=== PATIENT | male | born 1955 | race Caucasian/White ===

== ENCOUNTER 2017-07-23 11:55 | Inpatient (IN) | payer BC, OTHER ==
[2017-07-23 14:49] LABS: PLATELET COUNT 176 10^3/uL (150-400)
[2017-07-23] MEDS ORDERED: ACETAMINOPHEN 500 MG TAB PO ONE (15:11)
[2017-07-23] MEDS ORDERED: NS 1,000 ML IV ONE (15:12)
[2017-07-23] MEDS ORDERED: cefTRIAXone 1 GM in STERILE WATER INJ 10 ML IV ONE (15:14)
[2017-07-23] MEDS ORDERED: NS 3,000 ML IV ONE (15:20)
--- NOTE | 2017-07-23 15:25 | EDPHY ---
H & P Smoking Status: Never smoked Time Seen by Provider: 07/23/17 13:31 HPI/ROS: CHIEF COMPLAINT: Fever, myalgias HISTORY OF PRESENT ILLNESS: 61-year-old male presents to the emergency department by private vehicle with fever and myalgias that began this morning. The patient states that he woke up this morning with "shaking chills". He states that he has diffuse myalgias. He initially went to urgent care however they sent him to the emergency department for evaluation. He denies rhinorrhea , nasal congestion, cough, chest or difficulty breathing. Denies abdominal pain. He had some mild lower back discomfort which she thought was associated with riding his bike. He has no radicular symptoms in his lower legs. He does reports that he has some urinary frequency that developed this morning as well. He denies dysuria or hematuria. He has never had problems with bladder kidney infections in the past. No recent surgery or procedures. No known ill contacts or recent travel. REVIEW OF SYSTEMS: Constitutional: Fever, chills Eyes: No double or blurry vision. ENT: No sore throat. Respiratory: No cough, no shortness of breath. Cardiac: No chest pain. Gastrointestinal: No abdominal pain, vomiting or diarrhea. Genitourinary: Urinary frequency, no dysuria. Musculoskeletal: As above. No neck pain. Skin: No rashes. Neurological: No headache. (Ozzy,Sara M) Past Medical/Surgical History: Negative (Ozzy,Sara M) Social History: and lives in [place]. Originally from [place] (Ozzy,Sara M) Physical Exam: General Appearance: Alert, no distress. Initial temperature 38.8 degrees. Eyes: Pupils equal and round. Extraocular motions are all intact. ENT: Mouth: Mucous membranes moist. Respiratory: No wheezing, rhonchi, or rales, lungs are clear to auscultation. Cardiovascular: Regular rate and rhythm. Gastrointestinal: Abdomen is soft and nontender, no masses, no rebound or guarding, bowel sounds normal. No CVA tenderness bilaterally. Neurological: Alert and oriented x 3, cranial nerves II through XII grossly intact Skin: Warm and dry, no rashes. Musculoskeletal: Nontender to palpate along the cervical, thoracic or lumbar spine. Neck is supple. Extremities: Full range of motion and no peripheral edema. Psychiatric: Patient is oriented X 3, there is no agitation. (Sara Preciado) Constitutional: Initial Vital Signs Temperature (C) 37.9 C 07/23/17 12:02 Heart Rate 82 07/23/17 12:02 Respiratory Rate 18 07/23/17 12:02 Blood Pressure 142/85 H 07/23/17 12:02 O2 Sat (%) 92 07/23/17 12:02 O2 Delivery Mode Room Air Allergies/Adverse Reactions: No Known Allergies Allergy (Unverified 07/23/17 12:05) Home Medications: Medication Instructions Recorded Herbals/Supplements -Info Only 1 ea PO DAILY 07/23/17 Medical Decision Making ED Course/Re-evaluation: 61-year-old male presents to the emergency department with fever, shaking chills and myalgias. Influenza was negative. Urinalysis reveals 50-200 red blood cells and 50-200 white blood cells with bacteria present. Urine cultures pending. Given the patient's high fever and urinalysis, laboratory studies were drawn the patient has elevated white count of nearly 22,000 a large left shift. Chemistries are unremarkable. Lactate is pending. Blood cultures and urine culture are pending. Patient was given 1 g of Tylenol p. O.. He received IV normal saline in the emergency department. Case was discussed with Dr. Otto Conway, secondary supervising physician, who also talked with the patient. He agrees with admitting the patient to the hospital. Patient was given 1 g of ceftriaxone IV. Patient will be admitted to the hospitalist, Dr. Fermin Russo. Lactate was 1.7, the patient does not meet severe sepsis criteria. 16:00 Postvoid residual urine 14 mL. (Sara Preciado) Differential Diagnosis: Including but not limited to influenza, pneumonia, urinary tract infection, prostatitis, acute appendicitis, sepsis (Sara Preciado) Other Provider: PHYSICIAN DOCUMENTATION: The patient was evaluated and managed by the Physician Environmental Health Safety Manager and myself. I have reviewed the chart and agree with the findings and plan of care as documented. In addition, I examined the patient myself at 1515. History confirmed as fever. Physical findings as follows: No CVA tenderness. Vital signs reviewed. Presents with pyelonephritis, never had that before. Elevated white blood cell count but is not hypertensive and has a normal lactate. Has SIRS criteria but not severe sepsis or septic shock. IV fluid resuscitation, ceftriaxone 1 g IV cultures and admission hospitalist. I am the secondary supervising physician. (Otto Conway) - Data Points Laboratory Results: Laboratory Results 07/23/17 14:40 07/23/17 14:40 07/23/17 07/23/17 07/23/17 15:05 14:40 14:40 WBC 21.50 10^3/uL H 10^3/uL (3.80-9.50) RBC 4.69 10^6/uL 10^6/uL (4.40-6.38) Hgb 16.0 g/dL g/dL (13.7-17.5) Hct 44.9 % % (40.0-51.0) MCV 95.7 fL fL (81.5-99.8) MCH 34.1 pg pg (27.9-34.1) MCHC 35.6 g/dL g/dL (32.4-36.7) RDW 12.5 % % (11.5-15.2) Plt Count 176 10^3/uL 10^3/uL (150-400) MPV 10.1 fL fL (8.7-11.7) Neut % (Auto) 88.3 % H % (39.3-74.2) Lymph % (Auto) 2.1 % L % (15.0-45.0) Green % (Auto) 7.9 % % (4.5-13.0) Eos % (Auto) 0.1 % L % (0.6-7.6) Baso % (Auto) 0.3 % % (0.3-1.7) Nucleat RBC Rel Count 0.0 % % (0.0-0.2) Absolute Neuts (auto) 19.00 10^3/uL H 10^3/uL (1.70-6.50) Absolute Lymphs (auto) 0.46 10^3/uL L 10^3/uL (1.00-3.00) Absolute Monos (auto) 1.69 10^3/uL H 10^3/uL (0.30-0.80) Absolute Eos (auto) 0.02 10^3/uL L 10^3/uL (0.03-0.40) Absolute Basos (auto) 0.06 10^3/uL 10^3/uL (0.02-0.10) Absolute Nucleated RBC 0.00 10^3/uL 10^3/uL (0-0.01) Immature Gran % 1.3 % H % (0.0-1.1) Immature Gran # 0.27 10^3/uL H 10^3/uL (0.00-0.10) VBG Lactic Acid 1.7 mmol/L mmol/L (0.7-2.1) Sodium 138 mEq/L mEq/L (135-145) Potassium 4.0 mEq/L mEq/L (3.5-5.2) Chloride 102 mEq/L mEq/L (97-110) Carbon Dioxide 23 mEq/l mEq/l (22-31) Anion Gap 13 mEq/L mEq/L (8-16) BUN 15 mg/dL mg/dL (7-23) Creatinine 1.0 mg/dL mg/dL (0.7-1.3) Estimated GFR > 60 Glucose 124 mg/dL H mg/dL (70-100) Calcium 9.3 mg/dL mg/dL (8.5-10.4) Urine Color Urine Appearance Urine pH Ur Specific Rentz Urine Protein Urine Ketones Urine Blood Urine Nitrate Urine Bilirubin Urine Urobilinogen Ur Leukocyte Esterase Urine RBC Urine WBC Ur Epithelial Cells Urine Mucus Urine Glucose Nasal Influenza A PCR Nasal Influenza B PCR 07/23/17 07/23/17 14:10 13:36 WBC RBC Hgb Hct MCV MCH MCHC RDW Plt Count MPV Neut % (Auto) Lymph % (Auto) Green % (Auto) Eos % (Auto) Baso % (Auto) Nucleat RBC Rel Count Absolute Neuts (auto) Absolute Lymphs (auto) Absolute Monos (auto) Absolute Eos (auto) Absolute Basos (auto) Absolute Nucleated RBC Immature Gran % Immature Gran # VBG Lactic Acid Sodium Potassium Chloride Carbon Dioxide Anion Gap BUN Creatinine Estimated GFR Glucose Calcium Urine Color MO Urine Appearance MODERATELY TURBID Urine pH 6.0 (5.0-7.5) Ur Specific Rentz 1.029 (1.002-1.030) Urine Protein 2+ H (NEGATIVE) Urine Ketones 1+ H (NEGATIVE) Urine Blood 3+ H (NEGATIVE) Urine Nitrate NEGATIVE (NEGATIVE) Urine Bilirubin NEGATIVE (NEGATIVE) Urine Urobilinogen NEGATIVE EU EU (0.2-1.0) Ur Leukocyte Esterase 3+ H (NEGATIVE) Urine RBC 50-182 /hpf H /hpf (0-3) Urine WBC 50-182 /hpf H /hpf (0-3) Ur Epithelial Cells TRACE /lpf /lpf (NONE-1+) Urine Mucus 3+ /lpf H /lpf (NONE-1+) Urine Glucose NEGATIVE (NEGATIVE) Nasal Influenza A PCR NEGATIVE FOR FLU A (NEGATIVE) Nasal Influenza B PCR NEGATIVE FOR FLU B (NEGATIVE) Medications Given: Sodium Chloride (Ns) 1,000 mls @ 125 mls/hr IV CONT JACQUELINE Stop: 01/19/18 15:44 Last Admin: 07/23/17 17:56 Dose: 1,000 mls Discontinued Medications Acetaminophen (Tylenol) 1,000 mg PO EDNOW ONE Stop: 07/23/17 15:12 Last Admin: 07/23/17 15:23 Dose: 1,000 mg Sodium Chloride (Ns) 1,000 mls @ 0 mls/hr IV ONCE ONE PRN Reason: Wide Open Stop: 07/23/17 15:13 Last Admin: 07/23/17 15:24 Dose: 1,000 mls Sodium Chloride (Ns) 3,000 mls @ 6,000 mls/hr 30 ml/kg infuse over 30 min ( 3000 ml) IV EDNOW ONE PRN Reason: Protocol Stop: 07/23/17 15:49 Last Admin: 07/23/17 16:29 Dose: 500 mls Ceftriaxone Sodium/Dextrose (Rocephin 1 Gm (Premix)) 50 mls @ 100 mls/hr IV EDNOW ONE Stop: 07/23/17 16:14 Last Admin: 07/23/17 15:39 Dose: 50 mls Departure - Departure Disposition: [facility] Acute Clinical Impression: Pyelonephritis, acute Condition: Good
[2017-07-23] MEDS ORDERED: HYDROCODONE/APAP 5/325 TAB PO PRN (15:43)
[2017-07-23] MEDS ORDERED: ONDANSETRON 4 MG/2 ML VIAL IVP PRN (15:43)
[2017-07-23] MEDS ORDERED: ONDANSETRON DISINTEGRATING 4 MG TAB PO PRN (15:43)
[2017-07-23] MEDS ORDERED: IOPAMIDOL (ISOVUE-300) 100 ML BTL ONE (16:51)
--- NOTE | 2017-07-23 17:05 | GHP ---
[f rep st] HISTORY AND PHYSICAL DATE OF ADMISSION: 07/23/2017 CHIEF COMPLAINT: Fevers and chills. HISTORY OF PRESENT ILLNESS: The patient is a pleasant 61-year-old gentleman with no major past medic al history, who presented to the [facility] emergency room after developing severe jonathan dy aches and chills earlier in the day. He denied having any upper respiratory illness such as cough or congestion. Influenza PCR testing was negative. His ER evaluation was notable, however, for inf ected-appearing urine with 3+ leukocyte esterase and 50-180 WBCs per high-power field. 3+ blood was also seen. Patient denies having any focal abdominal pain or back or flank pain. His white count wa s notably elevated as well at 21,000, and he had a fever of 38.8 documented in the emergency room. W ith all these findings, he is being admitted for further treatment and monitoring. PAST MEDICAL HISTORY: None. PAST SURGICAL HISTORY: 1. Left shoulder surgery. 2. Knee arthroscopic surgery. MEDICATIONS: None. ALLERGIES: No known drug allergies. SOCIAL HISTORY: The patient is . He has two sons. He is originally from [place]. He works [employer]. He is a former smoker but quit many years ago. FAMILY HISTORY: Mother and father are both . His father with possible lung cancer. He was having a heart valve replacement when this was discovered. Mother from colon cancer. Lisa ent states he has been good about having colonoscopies every 5 years. He has had polyps but no evide nce of cancer. REVIEW OF SYSTEMS: CONSTITUTIONAL: Positive for fevers and chills and malaise. No recent weight ch anges. ENT: No recent upper respiratory illnesses. CARDIOVASCULAR: No complaints of chest pains, palpitations, or syncopal episodes. RESPIRATORY: No complaints of shortness of breath or productive cough. GI: No nausea, vomiting, diarrhea, or constipation. No bloody stools. : No report of a ny burning with urination or cloudy urine or malodorous urine. No prior urinary tract infections. N EUROLOGIC: No complaints of headaches or focal weakness. HEMATOLOGIC: No history of any deep vein thrombosis or pulmonary embolism. PSYCHIATRIC: No history of anxiety or depression. ENDOCRINE: No history of any thyroid abnormalities or diabetes. SKIN: No new skin rashes. MUSCULOSKELETAL: No focal joint pains. PHYSICAL EXAM: VITAL SIGNS: Temperature is 38.8, blood pressure 142/85, heart rate 82, respirations 18 saturating 92% on room air. GENERAL: Patient appears comfortable. He is awake, alert, conversa nt, able to provide a good history. No acute distress. HEENT: Extraocular movements intact. No sc leral icterus. Dry mucous membrane. NECK: Supple. No adenopathy. No thyroid enlargement apprecia sandi. CHEST: Clear on auscultation. Normal respiratory effort. HEART: Regular rate and rhythm. N o murmurs. ABDOMEN: Soft, nontender, nondistended. No CVA tenderness. : No Brown catheter in p lace. EXTREMITIES: No significant pitting edema. NEUROLOGIC: Cranial nerves 2-12 appear intact. 5/5 strength throughout. LABS: White blood cell count is 21,000, hemoglobin 16, platelets 176. Sodium 138, potassium 4.0, ch loride 102, bicarb 23, BUN 15, creatinine 1.0, glucose of 124. Lactic acid 1.7. Urinalysis 3+ leuko cyte esterase, 3+ blood, 1+ ketone, 2+ protein. Influenza PCR testing negative. ASSESSMENT/PLAN: 1. Sepsis: Patient does meet criteria for systemic inflammatory response syndrome based on leukocyt osis of 21,000 and fever of 38.8. The source appears to be urinary. No evidence of shock or organ d amage at this point in time. Patient has been ordered 3 L of IV fluids in the emergency room. I milan l recommend continuation of IV fluids with normal saline at 125 mL/h. Trend parameters with treatmen t of underlying infection. 2. Possible pyelonephritis: Continue with current ceftriaxone as administered in the emergency room . Patient reports feeling much better since receiving antibiotics. Blood cultures have been obtaine d and sent. 3. Hematuria: We will check CT scan of the abdomen and pelvis to evaluate for any complicating feat ures of his infection, particularly any nephrolithiasis. 4. Deep venous thrombosis prophylaxis with Lovenox. DISPOSITION: I will admit him under inpatient status considering sepsis parameters. /[id number]/MODL
--- NOTE | 2017-07-23 17:23 | PDMN ---
Medical Necessity Medical necessity: C/M review: Acute and persistent sepsis, source apprears to be urinary, possible pyelonephritis, hematuria, 38.8 T max, WBC 21.50, UA 3+ leukocyte esterase, 3+ blood, 1+ ketone, 2+ protein, blood cultures pending, requiring planned 07/23/2017 CT abdomen/pelvis, ongoing IV Ceftriaxone QD, IV NS 125 ml/hr infusion. MD anticipates > 2 MN LOS for ongoing med nec for eval and TX of above.
[2017-07-23] MEDS: NS 1,000 ML IV SCH (17:56)
[2017-07-24] MEDS: NS 1,000 ML IV SCH ×3 (01:59→21:36)
[2017-07-24 04:47] LABS: PLATELET COUNT 164 10^3/uL (150-400)
[2017-07-24] MEDS: cefTRIAXone 2 GM in STERILE WATER INJ 20 ML IV SCH (08:40)
[2017-07-24] MEDS ORDERED: Herbals/Supplements -Info Only PO SCH (09:00)
[2017-07-24] MEDS ORDERED: cefTRIAXone 1 GM in STERILE WATER INJ 10 ML IV SCH (09:00)
[2017-07-24] MEDS: ENOXAPARIN 40 MG/0.4 ML SYR SC SCH (09:51)
--- NOTE | 2017-07-24 10:43 | HOSPPROG ---
Hospitalist Progress Note Assessment/Plan: 61y male c/o feeling ill. First encounter, chart reviewed. #bacteremia -GNR -cont CTX -await sensitivities -likely source urine -repeat bc #UTI -likely related to obstruction -enlarged prostate -urology consult #Leukocytosis -cont to follow #Sepsis -improving -cont supportive care #Dispo - await further evaluation and treatment Subjective: Anxious about illness. Feeling better then yesterday. Asking to see a urologist. Objective: Vital Signs Temp Pulse Resp BP Pulse Ox 37.2 C 67 16 120/63 93 07/24/17 08:00 07/24/17 08:00 07/24/17 08:00 07/24/17 08:00 07/24/17 08:00 Laboratory Results 07/24/17 04:17 07/24/17 04:17 07/23/17 07/24/17 07/25/17 05:59 05:59 05:59 Intake Total 3033 Output Total 700 Balance 2333 - Physical Exam Constitutional: no apparent distress, appears nourished, not in pain Eyes: PERRL, anicteric sclera, EOMI Ears, Nose, Mouth, Throat: moist mucous membranes, hearing normal, ears appear normal Cardiovascular: No JVD, No tachycardia, No edema Respiratory: no respiratory distress, no rales or rhonchi, reduced air movement Gastrointestinal: normoactive bowel sounds, No tenderness, No ascites Skin: warm, normal color, No mottled Musculoskeletal: normal joint ROM, no joint effusions, generalized weakness Neurologic: AAOx3 Psychiatric: interacting appropriately, not encephalopathic, thought process linear, anxious ICD10 Worksheet Patient Problems: Problems Problem Status Onset Pyelonephritis, acute Acute
[2017-07-24] MEDS: ACETAMINOPHEN 325 MG TAB PO PRN ×2 (13:10→18:06)
--- NOTE | 2017-07-24 14:16 | SOAPPROG ---
SOAP Progress Note Assessment/Plan: Assessment: Probable acute prostatitis w/ GNR bacteremia - stable. Plan: 1. Continue current mgmt. 2. Start Flomax -- continue following discharge. 3. Dr. Andersen w/ ID to see -- I have already discussed w/ him. 4. Pt. needs to FU in my office 2-3 weeks following discharge. See full dictated consult note (#[id number]). Objective: Vital Signs Temp Pulse Resp BP Pulse Ox 38.1 C 75 16 133/66 H 92 07/24/17 12:00 07/24/17 12:00 07/24/17 12:00 07/24/17 12:00 07/24/17 12:00 Laboratory Results 07/24/17 04:17 07/24/17 04:17 07/23/17 07/24/17 07/25/17 05:59 05:59 05:59 Intake Total 3033 Output Total 700 Balance 2333 ICD10 Worksheet Patient Problems: Problems Problem Status Onset Pyelonephritis, acute Acute
--- NOTE | 2017-07-24 15:12 | ASMTCASEMG ---
Living Arrangements What is your living Answers: With Spouse arrangement? Who do you live with? Discharge Plan Comments Coordination Status Comments Notes: Pt admitted w/ suspected pyelonephritis, fever and sepsis. Pt lives w/ his and two sons. 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 Urology and ID consulting for bacteremia. Discharge needs remain unclear at this time. CM will cont to follow. Current Discharge Plan: To be determined Date Signed: 07/24/2017 03:11 PM Electronically Signed By:Jana Dominguez RN
--- NOTE | 2017-07-24 15:14 | GCON ---
[f rep st] CONSULTATION UROLOGY CONSULTATION. DATE OF CONSULTATION: 07/24/2017 PHYSICIAN REQUESTING CONSULTATION: Hospitalist service. REASON FOR CONSULTATION: Gram-negative buck bacteremia. HISTORY: This is a 61-year-old otherwise healthy gentleman who developed fairly acute onset of rigors and fevers yesterday morning for which he presented to [facility]. He was promptly referred to the emergency room yesterday afternoon. The patient was admitted thereafter for further management. Starting about 2 days prior to presentation, he also noticed some slight dysuria and increased urinary frequency. He has since developed some urgency as well, all of which persist at this time. He otherwise admits only to some occasional weakening of his urinary stream and delayed onset of voiding that is exacerbated by sitting for long periods of time. He denies any significant preadmission lower urinary tract symptoms, prior episodes of UTIs, gross hematuria, nor history of prior urologic intervention. It was mentioned by his primary care doctor about 1 year ago that he did have an enlarged prostate and he was referred to Urology as a result. The patient did not subsequently see a urologist. PAST MEDICAL HISTORY: Healthy. PAST SURGICAL HISTORY: Includes left knee and left shoulder arthroscopies. ADMISSION MEDICATIONS: None. MEDICAL ALLERGIES: None known. FAMILY HISTORY: His father did have BPH for which he was on medication. SOCIAL HISTORY: The patient is and lives in the [facility]. He is a former smoker, but quit many years ago. 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 REVIEW OF SYSTEMS: Unremarkable, other than mentioned above in the HPI and past medical history. PHYSICAL EXAMINATION: GENERAL: Well-developed, well-nourished white male lying supine in bed, in no acute distress. VITAL SIGNS: Blood pressure 133/66 , pulse 75, respirations 16, oxygen saturations 92% on room air. Most recent temperature 38.1 Celsius at noon. This compares to a maximum temperature of 38.8 Celsius at 1310 yesterday. Height 188 cm, weight 98 kg, BMI 27.7. HEENT: Normocephalic, atraumatic. NECK: Supple. HEART: Regular rate. CHEST: Unlabored respiratory pattern. ABDOMEN: Soft without palpable masses. No obvious organomegaly. BACK: No CVA tenderness. GENITALIA: Noncircumcised phallus with unremarkable scrotal structures. Urethral meatus is normal in regards to position and caliber. EXTREMITIES: Warm without cyanosis, clubbing, or edema. VASCULAR: Normal aortic and femoral pulses bilaterally. NEUROLOGIC : He is alert and oriented. He answers all questions appropriately with normal mood and affect. RADIOGRAPHIC STUDIES: Iodinated abdominal CT scan yesterday: Upon my review, no evidence of hydroureteronephrosis. Renal contour is normal. No abnormal renal masses. Difficult to assess for nephroureterolithiasis since a noncontrast scan was not performed. However, there does not appear to be distal ureteral calculi appreciated. Delayed urinary tract imaging reveals no filling defects. Distal ureters do not opacify with contrast. The bladder is not distended. There does appear to be an enlarged prostate. LABORATORY: CBC today notable for white blood cell count 21,700 which compares to 21,500 on admission yesterday. Chemistry panel is normal, creatinine 1.0. Urinalysis is floridly positive for infection with 50-182 red blood cells and 50 -182 white blood cells per high-power field. Nasal influenza PCR is negative for influenza A and influenza B. Two of 2 blood cultures are positive for gram-negative rods. Urine culture reveals 2 different strains of lactose fermenting gram-negative rods. Full identification and susceptibilities are still pending. IMPRESSION: Probable acute prostatitis with gram-negative buck bacteremia. PLAN: 1. Continue supportive care with IV Rocephin until culture results have been received. He appears to be responding appropriately to current antibiotic therapy. 2. Due to his acute obstructive urinary symptoms that are probably related to the prostatitis, we will start him on tamsulosin 0.4 mg daily. He will need to continue this following discharge. I do not see any need for urethral catheterization. 3. I have discussed the case with Dr. Andersen from Infectious Disease who will be seeing the patient in consultation as well. 4. I have asked the patient to follow up in my office 2-3 weeks following discharge for further urologic assessment and management. Thank you for this consultation. Copy requested to: Dr. Luis Lilly /[id number]/MODL MTDD
[2017-07-24] MEDS: TAMSULOSIN HCL 0.4 MG CAP PO SCH (15:15)
--- NOTE | 2017-07-24 20:30 | GCON ---
[f rep st] CONSULTATION INPATIENT INFECTIOUS DISEASE CONSULTATION DATE OF CONSULTATION: 07/24/2017 REFERRING PHYSICIAN: Nilsa Senior MD REASON FOR CONSULTATION: Gram-negative bacteremia. Probable urinary tract infection. HISTORY OF PRESENT ILLNESS: The patient is a 61-year-old male who was admitted to [facility] through the emergency room on 07/23/2017. The patient initially presented complaining of feve rs and myalgias starting the day of admission. He noted rigors. The patient denied any respiratory symptoms or abdominal pain. The patient noted on admission that he has had some chronic urinary diff iculties including urinary frequency. The patient was evaluated and admitted for sepsis with a white blood cell count of 21,000. He also had fevers up to 38.8. Urinary tract was the clear source upon admission. The patient was resuscitated with volume fluid infusions, and started empirically on mon otherapy with ceftriaxone. Abdominal CT was obtained, which showed an enlarged prostate with hedy gaby of the bladder, as well as the outlet to the urethra. Urinalysis revealed pyuria in the urine a s well. The patient is currently resting in his hospital bed. He notes no current complaints. Stepankn owledges ongoing urinary symptoms. Also acknowledges that he was told by his primary care physician last year that he had an enlarged prostate, which needed to be evaluated by Urology. The patient did not follow up with that suggestion. PAST MEDICAL HISTORY: Essentially negative. PAST SURGICAL HISTORY: 1. Status post left shoulder surgery. 2. Status post arthroscopic surgery of the knee. ANTIBIOTICS: Ceftriaxone. ALLERGIES: No known drug allergies. SOCIAL HISTORY: The patient is . 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 Remote tobacco use. No significant alcohol or drug use noted. FAMILY HISTORY: Reviewed, but not contributory. REVIEW OF SYSTEMS: Other than that detailed above in history of present illness, a comprehensive 10- system review is negative. PHYSICAL EXAMINATION: VITAL SIGNS: Temperature maximum is 39.1, temperature current is 37.9, heart rate is 71, respiratory rate is 16, blood pressure 109/64. GENERAL: The patient is a well-formed, w ell-nourished, older male, in no acute distress. He is not toxic in appearance. He is alert and jessica ented x3. He is in a pleasant demeanor. HEENT: Normocephalic for age. Atraumatic. No scleral ict erus. No oral lesion. No drainage from the nares. Eyes, lids and conjunctivae are within normal li mits. Pupils are equal and round bilaterally. NECK: Supple. No meningismus. LUNGS: Clear to aus cultation bilaterally with good effort. HEART: Regular rate and rhythm. No significant peripheral edema. SKIN: Warm and dry to the touch. No rash or lesion noted. MUSCULOSKELETAL: No muscle tend erness is noted. No joint line effusion or arthritis seen. NEURO: Cranial nerves 2-12 seem to be i ntact. Peripheral sensation seems intact in extremities. LABORATORY DATA: The patient has a CBC dated 07/24/2017: Shows a white blood cell count of 21.7, he moglobin 14.4, hematocrit of 41.1, platelet count 164, differential is left-shifted with 88% segmente d neutrophils. Serum chemistries on 07/24/2017 are all within normal limits. Creatinine is 1.0. Ur inalysis on 07/23/2017 shows 3+ leukocyte esterase, 50-182 red blood cells, and 50-182 white blood ce lls per high-power field. Influenza A and B PCR on 07/23/2017 are negative. MICROBIOLOGIC DATA: The patient has blood cultures dated 07/23/2017; 2 out of 2 of which are growing gram-negative buck lactose fermenters. BCID PCR panel was not able to identify the organism. ASSESSMENT: Gram-negative bacteremia probably from a urinary tract infection source. This is clearl y caused by the significantly enlarged prostate and obstructive uropathy. I explained this in detail to the patient. The patient was started on Flomax by Urology, which may help with urine flow and ti me. At this point, we will continue him on ceftriaxone empirically, and follow up on identification sensitivity of the gram-negative buck. It is somewhat interesting that the PCR panel has not identifi ed this nonlactose internal control consultant. PLAN: 1. Continue IV ceftriaxone. 2. Follow fever curve and clinical course. /[id number]/MODL
[2017-07-25] MEDS: ACETAMINOPHEN 325 MG TAB PO PRN ×2 (04:18→14:05)
[2017-07-25] MEDS: NS 1,000 ML IV SCH ×2 (04:19→22:55)
[2017-07-25 05:35] LABS: PLATELET COUNT 131 10^3/uL (150-400)
[2017-07-25] MEDS: ENOXAPARIN 40 MG/0.4 ML SYR SC SCH (08:56)
[2017-07-25] MEDS: cefTRIAXone 2 GM in STERILE WATER INJ 20 ML IV SCH (08:56)
[2017-07-25] MEDS: TAMSULOSIN HCL 0.4 MG CAP PO SCH (08:56)
--- NOTE | 2017-07-25 12:46 | HOSPPROG ---
Hospitalist Progress Note Assessment/Plan: 61y male c/o feeling ill. D/W Dr Andersen. #bacteremia -GNR, Morganella Morganii -cont CTX, 2gm -likely source urine -repeat bc pending. NGTD #UTI/pyleo -likely related to obstruction -enlarged prostate -appreciate urology consult #Leukocytosis -cont to follow -improved #Sepsis -resolved -cont supportive care #Fever -conts #Dispo - await further evaluation and treatment Subjective: Very tired today. No pain. No new issues. Objective: Vital Signs Temp Pulse Resp BP Pulse Ox 37.6 C 65 16 142/81 H 95 07/25/17 11:26 07/25/17 11:26 07/25/17 11:26 07/25/17 11:26 07/25/17 11:26 Laboratory Results 07/25/17 04:22 07/25/17 04:22 07/24/17 07/25/17 07/26/17 05:59 05:59 05:59 Intake Total 3033 1500 2365 Output Total 700 675 Balance 2333 825 2365 - Physical Exam Constitutional: no apparent distress, appears nourished, not in pain Eyes: PERRL, anicteric sclera, EOMI Ears, Nose, Mouth, Throat: moist mucous membranes, hearing normal, ears appear normal Cardiovascular: No JVD, No tachycardia, No edema Respiratory: no respiratory distress, no rales or rhonchi, reduced air movement Gastrointestinal: normoactive bowel sounds, No tenderness, No ascites Skin: warm, normal color, No mottled Musculoskeletal: normal joint ROM, no joint effusions, generalized weakness Neurologic: AAOx3 Psychiatric: interacting appropriately, not anxious, not encephalopathic, thought process linear ICD10 Worksheet Patient Problems: Problems Problem Status Onset Pyelonephritis, acute Acute
--- NOTE | 2017-07-25 14:53 | PCMIDPN ---
Assessment/Plan: Assessment: bacteremia secondary to Morganella morganii. This is undoubtedly from the genitourinary tract as his urine culture also contains this organism. Patient is on ceftriaxone and his white count has normalized however he continues to have fevers. This may be secondary to the often recognized continuation of febrile response with genitourinary infections. Will continue to use IV ceftriaxone and follow his fever curve overnight again. Plan to try to discharge the patient tomorrow on oral Levaquin to complete a 10 day course provided his fever curve begins to alleviate. Plan: 1. Continue IV ceftriaxone. 2. Follow up on repeat blood cultures. 3. plan to switch to oral Levaquin 750 mg daily to complete a 10 day course once patient is stable for discharge. 07/25/17 14:51 Subjective: Patient is resting in his hospital bed. He is eager to go home. 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 Otherwise he feels well. Objective: Ceftriaxone # 3 Vital Signs Temp Pulse Resp BP Pulse Ox 37.6 C 65 16 142/81 H 95 07/25/17 11:26 07/25/17 11:26 07/25/17 11:26 07/25/17 11:26 07/25/17 11:26 Laboratory Results 07/25/17 04:22 07/25/17 04:22 07/24/17 07/25/17 07/26/17 05:59 05:59 05:59 Intake Total 3033 1500 2365 Output Total 700 675 Balance 2333 825 2365 - Physical Exam General Appearance: WD/WN, alert, no apparent distress, non-toxic Cardiac/Chest: regular rate, rhythm, No tachycardia Skin: normal color, warm/dry, No rash Neuro/Psych: alert, normal mood/affect, oriented x 3 ICD10 Worksheet Patient Problems: Problems Problem Status Onset Pyelonephritis, acute Acute
--- NOTE | 2017-07-25 15:12 | ASMTCMCOM ---
CM Note CM Note Notes: Reviewed chart regarding discharge plan of care, pt's progress. Spoke w/ Ngozi Reed NP and Dr. Andersen. Pt w/ a fever today, discharge currently on hold. Per Ngozi, pt will likely discharge home independently when medically stable. CM will cont to follow for any potential needs. Current Discharge Plan: Home independently Date Signed: 07/25/2017 03:11 PM Electronically Signed By:Jana Dominguez RN
[2017-07-25] MEDS: IBUPROFEN 600 MG TAB PO PRN (18:19)
[2017-07-26 05:25] LABS: PLATELET COUNT 113 10^3/uL (150-400)
[2017-07-26] MEDS: NS 1,000 ML IV SCH ×2 (06:33→14:46)
[2017-07-26] MEDS: cefTRIAXone 2 GM in STERILE WATER INJ 20 ML IV SCH (08:07)
[2017-07-26] MEDS: IBUPROFEN 600 MG TAB PO PRN ×2 (08:07→19:09)
[2017-07-26] MEDS: TAMSULOSIN HCL 0.4 MG CAP PO SCH (08:08)
[2017-07-26] MEDS: ENOXAPARIN 40 MG/0.4 ML SYR SC SCH (09:25)
--- NOTE | 2017-07-26 11:40 | PCMIDPN ---
Assessment/Plan: Assessment/Plan: * Morganella bacteremia associated with UTI: Persistent fever with normalization of white blood cell count. Can take as long as 5 days to see fever resolve in the setting of bacteremia associated with urinary source. Will reassess this tomorrow and favor continued hospitalization at this point. Will continue ceftriaxone. Also has 2nd gram-negative buck on urine culture which I have asked the lab to further evaluate with identification and susceptibility. Discussed with patient transition to oral levofloxacin to complete therapy-he will give this consideration as he has a planned cycling trip to [email or web address] on 08/05/2017 given risk of tendinopathy and quinolone use. Other potential option orally would be trimethoprim/sulfamethoxazole as his Morganella isolate also shows susceptibility to this agent. 07/26/17 11:37 07/26/17 11:41 Subjective: Patient feels poorly when he has fever and improved when fever is absent. Appetite poor but no nausea, vomiting or diarrhea. Objective: Vital Signs Temp Pulse Resp BP Pulse Ox 37.5 C 66 14 133/77 H 91 L 07/26/17 11:02 07/26/17 07:46 07/26/17 07:46 07/26/17 07:46 07/26/17 07:46 Laboratory Results 07/26/17 04:17 07/26/17 04:17 07/25/17 07/26/17 07/27/17 05:59 05:59 05:59 Intake Total 1500 4390 1457 Output Total 675 800 Balance 825 3590 1457 Ceftriaxone # 4 Blood cultures 2/2 Morganella Urine culture with greater than 100,000 Morganella; [id number] colony-forming units of 2nd lactose fermenting gram-negative buck Temperature maximum 38.5 - Physical Exam General Appearance: alert, no apparent distress EENT: No scleral icterus, No thrush, No conjunctival petechiae Respiratory: lungs clear, No respiratory distress Cardiac/Chest: regular rate, rhythm, No systolic murmur Abdomen: non-tender, No distended Back: No CVA tenderness Skin: No rash ICD10 Worksheet Patient Problems: Problems Problem Status Onset Pyelonephritis, acute Acute
--- NOTE | 2017-07-26 12:23 | HOSPPROG ---
Hospitalist Progress Note Assessment/Plan: 61y male c/o feeling ill. D/W Dr Pereyra. #bacteremia -resolved -GNR, Morganella Morganii -cont CTX, 2gm -likely source urine #Persistent fever -normal white blood cell count #2nd gram-negative buck on urine culture -lab to further evaluate with identification and susceptibility. -possible transition oral levofloxacin to complete therapy - or trimethoprim/sulfamethoxazole #UTI/pyleo -likely related to obstruction -enlarged prostate -appreciate urology consult #Leukocytosis -cont to follow -improved #Sepsis -resolved -cont supportive care #Dispo - await further evaluation and treatment Subjective: Not feeling well. Poor appettite. Objective: Vital Signs Temp Pulse Resp BP Pulse Ox 37 C 52 L 18 121/73 H 92 07/26/17 12:00 07/26/17 12:00 07/26/17 12:00 07/26/17 12:00 07/26/17 12:00 Laboratory Results 07/26/17 04:17 07/26/17 04:17 07/25/17 07/26/17 07/27/17 05:59 05:59 05:59 Intake Total 1500 4390 1457 Output Total 675 800 Balance 825 3590 1457 - Physical Exam Constitutional: no apparent distress, appears nourished, not in pain Eyes: PERRL, anicteric sclera, EOMI Ears, Nose, Mouth, Throat: moist mucous membranes, hearing normal, ears appear normal Cardiovascular: No JVD, No tachycardia, No edema Respiratory: no respiratory distress, no rales or rhonchi, clear to auscultation Gastrointestinal: normoactive bowel sounds, No tenderness, No ascites Skin: warm, normal color, No mottled Musculoskeletal: normal joint ROM, no joint effusions, generalized weakness Neurologic: AAOx3 Psychiatric: interacting appropriately, not anxious, not encephalopathic, thought process linear ICD10 Worksheet Patient Problems: Problems Problem Status Onset Pyelonephritis, acute Acute
[2017-07-27] MEDS: IBUPROFEN 600 MG TAB PO PRN (07:50)
[2017-07-27] MEDS: NS 1,000 ML IV SCH (07:56)
--- NOTE | 2017-07-27 08:27 | HOSPPROG ---
Hospitalist Progress Note Assessment/Plan: 61y male c/o feeling ill. Today is my 1st encounter with the patient. Chart reviewed. #Morganella Morganii bacteremia associated with a urinary tract infection -2nd set of blood cultures currently show no growth -cont CTX, 2gm -likely source urine #Persistent fever -normal white blood cell count #UTI/pyleo -likely related to obstruction -enlarged prostate -appreciate urology consult #Leukocytosis -much improved #Hypoxemia -room air challenge #Sepsis -resolved -cont supportive care #HTN -follow #plan: dc IV fluids, will await input from ID, will do a room air challenge #Dispo: pending, he's feeling better, cont to have fevers and has a poor appetite Subjective: Minh is wanting to be dc but doesn't have much of an appetite. Feels bloated. Objective: Vital Signs Temp Pulse Resp BP Pulse Ox 37.6 C 61 16 162/99 H 91 L 07/27/17 08:00 07/27/17 08:00 07/27/17 08:00 07/27/17 08:00 07/27/17 08:00 Laboratory Results 07/26/17 04:17 07/26/17 04:17 07/26/17 07/27/17 07/28/17 05:59 05:59 05:59 Intake Total 4390 3497 Output Total 800 350 200 Balance 3590 3147 -200 - Physical Exam Constitutional: no apparent distress, appears nourished, not in pain Eyes: PERRL Ears, Nose, Mouth, Throat: hearing normal Cardiovascular: regular rate and rhythym Respiratory: no respiratory distress, reduced air movement (bases) Gastrointestinal: normoactive bowel sounds Skin: warm Musculoskeletal: full muscle strength Neurologic: AAOx3 Psychiatric: interacting appropriately ICD10 Worksheet Patient Problems: Problems Problem Status Onset Pyelonephritis, acute Acute
[2017-07-27] MEDS: cefTRIAXone 2 GM in STERILE WATER INJ 20 ML IV SCH (09:42)
[2017-07-27] MEDS: TAMSULOSIN HCL 0.4 MG CAP PO SCH (09:44)
[2017-07-27] MEDS: ENOXAPARIN 40 MG/0.4 ML SYR SC SCH (10:34)
--- NOTE | 2017-07-27 12:38 | PCMIDPN ---
Assessment/Plan: Assessment/Plan: 1. Sepsis with Morganella bacteremia secondary to acute prostatitis: - Still febrile which can be expected early in course of treatment. close monitoring however, for improvement. - wbc has improved. -clinically started to feel better - Urine cx with Morganella and second GNR LF yet to be identified/pending -Blood cx from 07/24/17 ngtd - Urology following -Continue with Ceftriaxone while in hospital with possible transition to oral bactrim to complete therapy in the OP (when ready), barring any new developments. -care coordinated with hospitalist team meds Ceftriaxone 2g daily- 07/24/17 Subjective: Still with intermittent fever spikes. temp curve better this am but did have ibuprofen. Denies abd pain, flank pain or dysuria. Denies sob. having mild cough today. on IVF. Objective: Vital Signs Temp Pulse Resp BP Pulse Ox 37.0 C 51 L 18 138/81 H 92 07/27/17 11:27 07/27/17 11:54 07/27/17 11:54 07/27/17 11:27 07/27/17 11:54 Laboratory Results 07/26/17 04:17 07/26/17 04:17 07/26/17 07/27/17 07/28/17 05:59 05:59 05:59 Intake Total 4390 3497 Output Total 800 350 200 Balance 3590 3147 -200 - Physical Exam General Appearance: alert, no apparent distress EENT: No thrush Respiratory: lungs clear Cardiac/Chest: regular rate, rhythm Extremities: No swelling Abdomen: normal bowel sounds, non-tender, soft, No distended Back: No CVA tenderness Skin: No erythema ICD10 Worksheet Patient Problems: Problems Problem Status Onset Pyelonephritis, acute Acute
[2017-07-28 04:03] VITALS: O2SAT 93
[2017-07-28] MEDS: TAMSULOSIN HCL 0.4 MG CAP PO SCH (08:32)
[2017-07-28] MEDS: cefTRIAXone 2 GM in STERILE WATER INJ 20 ML IV SCH (08:32)
[2017-07-28] MEDS: ENOXAPARIN 40 MG/0.4 ML SYR SC SCH (08:33)
[2017-07-28 09:06] VITALS: BP 139/70; PULSE 59; RESP 18; TEMP 99
--- NOTE | 2017-07-28 09:48 | HOSPPROG ---
Hospitalist Progress Note Assessment/Plan: 61y male c/o feeling ill. #Morganella Morganii bacteremia associated with a urinary tract infection -2nd set of blood cultures currently show no growth -cont CTX, 2gm -likely source urine #Persistent fever -normal white blood cell count #UTI/pyleo -likely related to obstruction -enlarged prostate -appreciate urology consult #Leukocytosis -much improved #Hypoxemia -room air challenge shows oxygen levels stable #Sepsis -resolved -cont supportive care #HTN - #plan: dc today after ID sees him #Dispo:f/u with Dr Senior Subjective: Kristopher is feeling much better today. Objective: Vital Signs Temp Pulse Resp BP Pulse Ox 37.2 C 59 L 18 139/70 H 93 07/28/17 08:00 07/28/17 08:00 07/28/17 08:00 07/28/17 08:00 07/28/17 08:00 Laboratory Results 07/26/17 04:17 07/26/17 04:17 07/27/17 07/28/17 07/29/17 05:59 05:59 05:59 Intake Total 3497 300 Output Total 350 500 Balance 3147 -200 - Physical Exam Constitutional: no apparent distress, appears nourished, not in pain Eyes: PERRL Ears, Nose, Mouth, Throat: hearing normal Cardiovascular: regular rate and rhythym Respiratory: no respiratory distress Gastrointestinal: normoactive bowel sounds Neurologic: AAOx3 Psychiatric: interacting appropriately, not anxious ICD10 Worksheet Patient Problems: Problems Problem Status Onset Pyelonephritis, acute Acute
[2017-07-28] MEDS ORDERED: BISACODYL 10 MG SUPP PR PRN (10:27)
[2017-07-28] MEDS ORDERED: POLYETHYLENE GLYCOL 3350 17 GM PKT PO PRN (10:27)
[2017-07-28] MEDS ORDERED: MAGNESIUM HYDROXIDE 30 ML UDCUP PO PRN (10:27)
[2017-07-28] MEDS ORDERED: LACTULOSE 20 GM/30 ML UDCUP PO PRN (10:27)
--- NOTE | 2017-07-28 10:35 | ASMTLACE ---
RIGOBERTOE Length of stay for Answers: 4-6 days current admission Acuity / Level of Answers: Yes Care: Did the patient have an inpatient admission? # of Emergency department Answers: 0 visits in the last 6 months Score: 7 Date Signed: 07/28/2017 10:34 AM Electronically Signed By:Shahla West RN
--- NOTE | 2017-07-28 10:36 | ASMTCMCOM ---
CM Note CM Note Notes: Spoke w/MIXING PAN TENDER, pt will transition to PO abx and dc home w/support of when medically stable. CM available for any changes. DC Plan: Independent Date Signed: 07/28/2017 10:36 AM Electronically Signed By:Shahla Wets RN
--- NOTE | 2017-07-28 11:32 | PCMIDPN ---
Assessment/Plan: Assessment: bacteremia secondary to Morganella morganii. This is undoubtedly from the genitourinary tract as his urine culture also contains this organism. Patient is on ceftriaxone and his white count has normalized and fevers have ceased. He could discharge today on oral Bactrim 1 ds p. O. Twice daily. Complete a 10 day course. Plan: 1.Plan to switch to oral Bactrim 1 ds p.o. Twice daily to complete a 10 day course once patient is stable for discharge. Subjective: Patient is sitting up in his chair in his hospital room. Denies any fevers or chills. Feels better but is still weak. No fevers Objective: Ceftriaxone # 5 Vital Signs Temp Pulse Resp BP Pulse Ox 37.2 C 59 L 18 139/70 H 93 07/28/17 08:00 07/28/17 08:00 07/28/17 08:00 07/28/17 08:00 07/28/17 08:00 Laboratory Results 07/26/17 04:17 07/26/17 04:17 07/27/17 07/28/17 07/29/17 05:59 05:59 05:59 Intake Total 3497 300 Output Total 350 500 Balance 3147 -200 - Physical Exam General Appearance: WD/WN, alert, no apparent distress, non-toxic Cardiac/Chest: regular rate, rhythm, No tachycardia Extremities: normal inspection Skin: normal color, warm/dry, No rash Neuro/Psych: alert, normal mood/affect, oriented x 3 ICD10 Worksheet Patient Problems: Problems Problem Status Onset Pyelonephritis, acute Acute
--- NOTE | 2017-07-28 13:19 | GDS ---
[f rep st] DISCHARGE SUMMARY DISCHARGE DIAGNOSES: 1. Morganella morganii bacteremia associated with the urinary tract infection. 2. Persistent fever. 3. Urinary tract infection, pyelonephritis. 4. Leukocytosis. 5. Hypoxemia. 6. Sepsis on admission. CONSULTATIONS: 1. Dr. Nilsa Senior. 2. Dr. Ilya Andersen. HISTORY OF PRESENT ILLNESS: Briefly, the patient is a 61-year-old gentleman with no significant past medical history. He presented to [facility] after developing severe body aches and ch ills earlier in the day. He did not have any type of upper respiratory illness. Influenza PCR was c hecked, which was negative. It was noted that he had a urinary tract infection. His white blood perez l count was elevated at 21,000. He was admitted. A CT of the abdomen was performed for further eval uation because of hematuria. It noted that he has suspected hematuria from chronic obstructed urinar y bladder or the enlarged prostate gland. Subsequently, he was seen evaluated by Dr. Senior. His re commendations were to continue supportive care. It is noted that he does have an acute obstructive u rinary symptoms that are probably related to prostatitis. He was started on Flomax. He will continu e this at discharge. He will further follow up with Dr. Senior in the outpatient setting. HOSPITAL COURSE: 1. Morganella morganii bacteremia associated with urinary tract infection. His second set of blood cultures show no growth. He was treated with ceftriaxone. He will be discharged on Bactrim. 2. Persistent fever, improved. His white blood cell count has normalized. 3. Urinary tract infection, pyelonephritis. This is likely related to enlarged prostate. He will f ollow up with Dr. Senior. 4. Leukocytosis, much improved. 5. Hypoxemia, resolved. 6. Sepsis, resolved. 7. Hypertension. Blood pressure is much improved. DISCHARGE CONDITION: Stable. Blood pressure is 129/70, heart rate is 59, respiratory rate is 18, O2 saturation on room air 93%, temperature is 37.2 Celsius. MEDICATIONS AT DISCHARGE: Please see the EMR. DISCHARGE INSTRUCTIONS: 1. To follow up with Dr. Senior in 2 weeks. 2. If he develops fever, chills, to return to the ER. 3. Stay well hydrated while on the antibiotic in particular. Greater than 30 minutes discharging and coordinating care. /[id number]/MODL
[2017-07-28] MEDS ORDERED: SENNOSIDES/DOCUSATE SODIUM TAB PO SCH (21:00)
== END 2017-07-28 14:26 | disposition home or self-care (01) | DRG 872 ==
LOC: OBSVTOIN 15:50 → F3E 16:27
PROVIDERS: ADMIT Internal Medicine; ATTEND Internal Medicine
DX: A41.89 Other specified sepsis (principal); B96.4 Proteus (mirabilis) (morganii) as the cause of diseases classified elsewhere; N39.0 Urinary tract infection, site not specified; N40.1 Benign prostatic hyperplasia with lower urinary tract symptoms; N13.8 Other obstructive and reflux uropathy; Z87.891 Personal history of nicotine dependence
CPT/HCPCS: 96374; J0696; J1650; Q9967